=== PATIENT | male | born 2000 | race Two or more races ===

== ENCOUNTER 2021-05-07 12:23 | Emergency (ER) | payer MEDICAID ==
[~2021-05-07] VITALS: Ht 175.3 cm; Wt 79.4 kg
[2021-05-07 15:42] VITALS: BP 141/79
== END 2021-05-07 16:41 | disposition home or self-care (01) ==
LOC: ER 12:23
DX: U07.1 COVID-19 (principal); J03.90 Acute tonsillitis, unspecified
CPT/HCPCS: 36415; 87426